=== PATIENT | male | born 1960 | race African-American/Black ===

== ENCOUNTER 2016-12-29 07:10 | Emergency (ER) | payer OTHER ==
[2016-12-29 07:15] VITALS: BP 148/84
--- NOTE | 2016-12-29 07:33 | ED.ADGEN ---
Past History Past Medical History: Cancer Past Surgical History: Other Alcohol Use: Occasionally Drug Use: None Adult General Chief Complaint Chief Complaint Fall, left side pain HPI HPI Patient is a 53-year-old -[place] male who presents with accidental fall with left-sided flank/rib pain. Patient fell while trying to secure basement door from rain last night. Patient tumbled forward landing on his left shoulder and side. Denies shoulder pain felt patient, reports right bicep pain in left lateral lower rib pain. The pain is worse with palpation in trunk rotation. No shortness of breath, abdominal pain. Patient did not hit his head or neck. He is not on anticoagulation therapy. No medications or therapy is attempted prior to ED arrival. Review of Systems Review of Systems ROS as per HPI[ Physical Exam Physical Exam Constitutional: Well developed, well nourished. HENT: Normocephalic, atraumatic, bilateral external ears normal,nose normal. Eyes: PERRL, EOM. Neck: Normal range of motion, no midline tenderness. Cardiovascular:Heart rate regular rhythm, no murmur. Lungs & Thorax: Bilateral breath sounds clear to auscultation. Left lateral chest wall pain, tenderness, no crepitus or subcutaneous emphysema. Abdomen: Bowel sounds normal, soft, no tenderness. Skin: Normal for ethnicity, no appreciated bruising. Back: No midline pain. Left lateral lower rib pain, tenderness. Extremities: Left shoulder no deformity, pain on range of motion. Left bicep pain tenderness. No bruising appreciated. Neurologic: Alert and oriented X 3, normal motor function, normal sensory function, no focal deficits noted. Psychologic: Affect normal, judgement normal, mood normal. Current Patient Data Vital Signs Vital Signs Date Time Temp Pulse Resp B/P (MAP) Pulse Ox O2 Delivery O2 Flow Rate FiO2 12/29/16 07:15 98.0 65 16 98 Room Air EKG EKG [] Radiology/Procedures Radiology/Procedures [Left rib series PA chest: No obvious displaced rib fracture evidence of pneumothorax.] Course & Med Decision Making Course & Med Decision Making Pertinent Labs and Imaging studies reviewed. (See chart for details) [No acute bony abnormality on imaging. Abdomen soft, nontender. Low index of suspicion of possible spleen injury based on location of pain. Recommend supportive care with PCP follow-up as needed. Return precautions reviewed.] Final Impression Final Impression [1. Left flank pain 2. Contusions of Left ribs Problems: Dragon Disclaimer Dragon Disclaimer This electronic medical record was generated, in whole or in part, using a voice recognition dictation system. MARK HOROWITZ DO Dec 29, 2016 07:33
--- NOTE | 2016-12-29 08:10 | RAD ---
EXAM: Chest one view with 3 view left rib series. HISTORY: Trauma, left chest pain. COMPARISON: None. FINDINGS: There are no confluent infiltrates. There is no pneumothorax or pleural effusion. The heart is not enlarged. There are no displaced left rib fractures. IMPRESSION: 1. No displaced left rib fractures. No confluent infiltrates.
== END 2016-12-29 07:45 | disposition home or self-care (01) ==
LOC: ER 07:10
DX: S20.212A Contusion of left front wall of thorax, initial encounter (principal); R10.9 Unspecified abdominal pain; M79.621 Pain in right upper arm; W19.XXXA Unspecified fall, initial encounter; Y93.89 Activity, other specified; Y99.8 Other external cause status; Y92.89 Other specified places as the place of occurrence of the external cause
CPT/HCPCS: 71101; 99284

== ENCOUNTER → 2017-01-04 | Outpatient (CLI) | payer OTHER ==
[2016-12-29 07:15] VITALS: BP 148/84
[~2017-01-04] MED LIST: CONTRAST GIVEN MC PRN
--- NOTE | 2017-01-04 16:21 | RAD ---
Indication back pain associated with a fall. Grayscale imaging targeted to the kidneys was performed. The right kidney measures 10.8 x 5.7 x 6 cm. No hydronephrosis or mass is seen. The left kidney measures 10.4 x 6.2 x 5 cm and also appears unremarkable. The urinary bladder appeared grossly normal. IMPRESSION: Normal morphologic appearance of the kidneys
[2017-01-04] MEDS: IOHEXOL 300 MG/ML 75 ML VIAL. IV ONE (16:45)
--- NOTE | 2017-01-04 17:03 | RAD ---
Indication left-sided pain following a fall. Low back pain. IV contrast imaging through the abdomen and pelvis was performed. 75 cc of Isovue-370 was administered intravenously. No oral contrast was administered. The history of colon cancer has been provided. No prior CT imaging is available. There is some slight volume loss at the left lung base. This may reflect scar atelectasis or, less likely, an inflammatory process. There is no significant pleural fluid at either lung base. An acute bony finding is not seen. Pars defects are noted at L5. There is mild spondylolisthesis at L5-S1. Some degenerative changes are noted in the lumbar spine. There is a small spigelian hernia in the ventral abdominal wall. There are dilated loops of small bowel in the right upper abdomen. A component of partial mechanical small bowel obstruction is not excluded. It is not certain whether the hernia just referenced places a role in possible partial mechanical small bowel obstruction. The liver is essentially unremarkable. There are small masses compatible with cysts. The spleen is normal. No pancreatic adrenal or renal anomaly is seen. Ostomy is noted. There is presacral soft tissue fullness which is very likely postsurgical in nature. An acute finding in the pelvis is not seen. IMPRESSION: Spigelian hernia as outlined above. Mild to moderate dilatation of small bowel loops in the upper abdomen. A component of partial mechanical small bowel obstruction is not excluded Mild volume loss at the left lung base likely reflecting atelectasis or scar
== END | disposition home or self-care (01) ==
LOC: US 11:53
PROVIDERS: ATTEND Nurse Practitioner Primary Care
DX: M43.17 Spondylolisthesis, lumbosacral region (principal); K43.9 Ventral hernia without obstruction or gangrene
CPT/HCPCS: 74177; 76770; Q9967